=== PATIENT | female | born 1995 | race American Indian/Alaskan Native ===

== ENCOUNTER 2018-10-26 19:24 | Emergency (ER) | payer OTHER ==
--- NOTE | 2018-10-26 19:43 | ED PDOC ---
Arrival/HPI - General Chief Complaint: Abdominal Pain Time Seen by Provider: 10/26/18 19:37 - History of Present Illness Narrative History of Present Illness (Text): 23 yr old F p/w abdominal pain, headache, syncope. She notes abdominal pain all day, started this morning, throbbing, periumbilical, without radiation. She notes the pain is different from her normal period pain. She notes she is currently on her period, with mildly heavier flow. She denies any trauma. She notes headache started at 1600, after her abdominal pain. [place] was not worst of life and not sudden in onset. She notes feeling dizzy prior to syncopal episode. She denies any pain after falling and passing out other than her head and abdomen. No FND. She denies biting her tongue or loss of bowel control. Family deny any seizure like activity. No hx of alcohol use. No family hx of sudden or arrythmias. She also notes that she has not eaten very much over the past 2 days. She notes only eating czech fries yesterday. She denies any SI, Hi or depression. No trouble sleeping. No decrease in pleasure of previous activities. No drug use. No fever, chills or night sweats No chest pain or sob No leg swelling No urinary complaints No back pain No neck pain No other complaints Past Medical History - Reproductive Currently : Unknown Family/Social History Family/Social History: Unknown Family HX Allergies/Home Meds Allergies/Adverse Reactions: Allergies No Known Allergies Allergy (Verified 10/26/18 19:37) Home Medications: Home Meds Medication Instructions Recorded Confirmed RX: No Known Home Med 10/26/18 10/26/18 Review of Systems - Review of Systems Constitutional: absent: Fatigue, Weight Change, Fevers Eyes: absent: Vision Changes, Photophobia ENT: absent: Hearing Changes, Tinnitus Respiratory: absent: SOB, Cough, Sputum Cardiovascular: absent: Chest Pain, Palpitations Gastrointestinal: Abdominal Pain, Appetite Changes. absent: Stool Changes, Constipation, Vomiting, Hematochezia Genitourinary Female: absent: Dysuria, Frequency Musculoskeletal: absent: Arthralgias, Back Pain Skin: absent: Rash, Pruritis Neurological: Headache. absent: Dizziness, Focal Weakness, Gait Changes, Speech Changes, Facial Droop, Disequilibrium, Seizure Endocrine: absent: Diaphoresis, Polyuria Hemo/Lymphatic: absent: Adenopathy, Easy Bleeding Psychiatric: absent: Anxiety, Depression Physical Exam Temperature: Afebrile Blood Pressure: Hypertensive Pulse: Tachycardic Respiratory Rate: Normal Appearance: Positive for: Well-Appearing, Non-Toxic, Comfortable Pain Distress: Mild Mental Status: Positive for: Alert and Oriented X 3 - Systems Exam Head: Present: Atraumatic, Normocephalic Pupils: Present: PERRL Extroacular Muscles: Present: EOMI Conjunctiva: Present: Normal Ears: Present: Normal Mouth: Present: Moist Mucous Membranes Pharnyx: Present: Normal. No: ERYTHEMA, EXUDATE Nose (External): Present: Atraumatic. No: Abrasion, Contusion, Laceration Nose (Internal): Present: Normal Inspection, No Active Bleeding, Moist. No: Boggy, Purulent Mucous, Septal Hematoma Neck: Present: Normal Range of Motion. No: Meningeal Signs, MIDLINE TENDERNESS, Paraspinal Tenderness, JVD Respiratory/Chest: Present: Clear to Auscultation, Good Air Exchange. No: Respiratory Distress, Tender to Palpation Cardiovascular: Present: Normal S1, S2, Tachycardic. No: Murmurs Abdomen: Present: Tenderness (periumbilical), Normal Bowel Sounds. No: Distention Back: Present: Normal Inspection. No: CVA Tenderness, Midline Tenderness Upper Extremity: Present: Normal Inspection, Normal ROM, NORMAL PULSES, Neurovascularly Intact. No: Cyanosis, Edema, Deformity Lower Extremity: Present: Normal Inspection, NORMAL PULSES, Normal ROM, Neurovascularly Intact. No: Edema, CALF TENDERNESS, Deformity Neurological: Present: GCS=15, CN II-XII Intact, Speech Normal, Motor Func Grossly Intact, Normal Sensory Function, Normal Cerebellar Funct, Gait Normal, Memory Normal Skin: Present: Warm, Dry. No: Rashes Psychiatric: Present: Alert, Oriented x 3, Normal Insight Medical Decision Making ED Course and Treatment: 23 yr old female well appearing in NAD p/w abdominal pain, headache, syncope. [place] not worst of life, not sudden on onset, no hx of PolyCycsKidney disease or family hx of brain lesions / bleeds. No FND. Normal neuro exam. Abdominal pain is lucinda-umbilical, without radiation, pt is also on period but w/ out abnl vaginal d/c outside of menstrual cycle. Syncope w/ out FND. No family hx of arrythmia. Pt notes decreased PO intake w/ out psych symptoms x2d. Syncope likely related 2/2 decrease PO intake. Neck clear via nexus. Non-ttp to hips, shoulder, chest, midline back. N/V intact in all extremities with no joint pain. Pt notes taking tylenol before coming and does not seek any pain meds at this time Pending imaging and labs 10/26/18 20:19 10/26/18 21:47 multiple attempts at line insertion failed Pt notes she would not like any further sticks of lines at this time I Informed patient the need to rule out appendicitis with a CT requiring an IV line. She notes understanding that without contrast i wont be able to fully rule out an appendicitis. Given patient AOx3, and with capacity. Will seek scan w/ out contrast. She is agreeable to scan w/ out contrast 10/26/18 23:11 CT Head, reviewed by radiologist: IMPRESSION: No acute intracranial abnormality. Electronically signed on Oct 26, 2018 10:57:11 PM EST by: Satya Sadler M.D., MBA Certified By ABR & [employer] Fellowship Trained MRI and CT Specialist CT Abdomen/Pelvis, reviewed by radiologist: IMPRESSION: 1. The visualized heart is mildly enlarged. 2. Tiny hiatal hernia. 3. Bladder is quite distended, measuring 16 x 6 x 12 cm. Please correlate for the possibility of urinary outflow obstruction or urinary retention. 4. Constipation. Electronically signed on Oct 26, 2018 11:02:43 PM EST by: Satya Sadler M.D., SUE Certified By ABR & CBC[employer] Fellowship Trained MRI and CT Specialist 10/26/18 23:27 labs largely unremarkable No appendicits seen on CT: appendix visualized w/ out abnl. Pending US Pt denies any difficulty urinating, gave sample earlier. 10/27/18 01:20 Pt in NAD Pending US 10/27/18 02:07 US Transvaginal, reviewed by radioligist: IMPRESSION: 1. No acute pelvic pathology demonstrated. Electronically signed on Oct 27, 2018 1:40:00 AM EST by: Satya Sadler M.D., SUE Certified By ABR & CBC[employer] Fellowship Trained MRI and CT Specialist 10/27/18 02:[address] unremarkable labs unremarkable pt denies any current complaints likely constipation pain. clear for d/c home with return indications and followup 10/27/18 05:45 Disposition/Present on Arrival - Present on Arrival Any Indicators Present on Arrival: No - Disposition Have Diagnosis and Disposition been Completed?: Yes Diagnosis: Constipation, Abdominal pain, Syncope Disposition: HOME/ ROUTINE Disposition Time: 02:15 Condition: GOOD Discharge Instructions (ExitCare): Constipation, Adult (DC), Acute Abdomen (Belly Pain), Adult (DC), Syncope (Fainting) (DC) Additional Instructions: TAKE OVER THE COUNTER LAXITIVE FOR YOUR CONSTIPATION . RETURN IF WORSENING PAIN OR NOT IMPROVED. MAKE SURE YOU EAT AND DRINK ENOUGH SO YOU DO NOT FEEL IF YOU ARE TO FAINT. NUBIA HERRERA, thank you for letting us take care of you today. Your provider was Wayne Chavez and you were treated for ABD PAIN. The emergency medical care you received today was directed at your acute symptoms. If you were prescribed any medication, please fill it and take as directed. It may take several days for your symptoms to resolve. Return to the Emergency Department if your symptoms worsen, do not improve, or if you have any other problems. Please contact your doctor or call one of the physicians/clinics you have been referred to that are listed on the Patient Visit Information form that is included in your discharge packet. Bring any paperwork you were given at discharge with you along with any medications you are taking to your follow up visit. Our treatment cannot replace ongoing medical care by a primary care provider outside of the emergency department. Thank you for allowing the [facility] team to be part of your care today. If you had an X-Ray or CT scan: A Radiologist will review the ED reading if any change in treatment is needed we will contact you. If you had a blood, urine, or wound culture: It will take several days for the results, if any change in treatment is needed we will contact you. If you had an STI test: It will take 48 hours for the results. Please call after 1 week if you have not heard back. Referrals: Pelon Granger MD [Staff Provider] - Follow up with primary Rosa M Bermudez MD [Medical Doctor] - Follow up with primary [facility] [Outside] - Follow up with primary [facility] [Outside] - Follow up with primary [facility] [Outside] - Follow up with primary Forms: [employer] (German)
[2018-10-26 19:45] VITALS: O2SAT 100
[2018-10-26] MEDS ORDERED: Sodium Chloride 0.9% 1,000 ML IV STA (19:54)
[2018-10-26 21:05] LABS: URINE APPEARANCE SLIGHT-CLOUDY (CLEAR); URINE BILIRUBIN NEGATIVE (NEGATIVE); URINE BLOOD LARGE (NEGATIVE); URINE COLOR LIGHT YELLOW (YELLOW); URINE GLUCOSE (UA) NEGATIVE (NEGATIVE); URINE LEUKOCYTE ESTERASE SMALL Leu/uL (NEGATIVE); URINE PROTEIN TRACE mg/dL (<30 mg/dL); URINE UROBILINOGEN 0.2 E.U./dL (<1 E.U./dL)
[2018-10-26 21:52] LABS: BASO # 0.01 K/mm3 (0.0-2.0); BASO % 0.2 % (0.0-3.0); EOS % 0.5 % (1.5-5.0); HEMOGLOBIN 11.1 g/dL (12.0-16.0); LYMPH # 1.9 (1.2-3.4); LYMPH % 31.1 % (22.0-35.0); MEAN CORPUSCULAR HEMOGLOBIN 25.2 pg (25.0-35.0); MEAN CORPUSCULAR HGB CONC 31.1 g/dl (31.0-37.0); MEAN PLATELET VOLUME 10.1 fl (7.0-11.0); MONO # 0.3 (0.1-0.6); MONO % 5.6 % (1.0-6.0); RBC 4.41 10^6/uL (3.5-6.1); RED CELL DISTRIBUTION WIDTH 14.3 % (11.5-14.5); WHITE BLOOD COUNT 5.9 10^3/uL (4.5-11.0)
[2018-10-26 22:06] LABS: ALB/GLOB RATIO 1.1 (1.1-1.8); ALBUMIN 4.5 g/dL (3.0-4.8); ALT/SGPT 10 U/L (7-56); AST/SGOT 23 U/L (14-36); BLOOD UREA NITROGEN 8 mg/dL (7-21); CALCIUM 9.6 mg/dL (8.4-10.5); GFR NON-AFRICAN AMERICAN > 60; LIPASE 71 U/L (23-300)
[2018-10-27 02:23] VITALS: BP 129/81; PULSE 80; TEMP 98.1
[2018-10-27 02:28] VITALS: RESP 18
--- NOTE | 2018-10-27 10:30 | CT ---
Date of service: 10/26/2018 PROCEDURE: CT HEAD WITHOUT CONTRAST. HISTORY: headache COMPARISON: None available. TECHNIQUE: Axial computed tomography images were obtained through the head/brain without intravenous contrast. Radiation dose: Total exam DLP = 821.97 mGy-cm. This CT exam was performed using one or more of the following dose reduction techniques: Automated exposure control, adjustment of the mA and/or kV according to patient size, and/or use of iterative reconstruction technique. FINDINGS: HEMORRHAGE: No parenchymal, subarachnoid extra-axial hemorrhage. BRAIN: No mass effect or edema. No atrophy or chronic microvascular ischemic changes. VENTRICLES: No obstructive hydrocephalus however the ventricles are slightly prominent... CALVARIUM: Calvarium intact. PARANASAL SINUSES: Unremarkable as visualized. No significant inflammatory changes. Enlarged adenoids not unusual in this age group. MASTOID AIR CELLS: Unremarkable as visualized. No inflammatory changes. OTHER FINDINGS: None. IMPRESSION: No acute intracranial hemorrhage. Slightly prominent appearing ventricles however there is no evidence of obstructive hydrocephalus.
--- NOTE | 2018-10-27 12:05 | CT ---
Date of service: 10/26/2018 PROCEDURE: CT Abdomen and Pelvis . HISTORY: Periumbilical abdominal pain. COMPARISON: None. TECHNIQUE: Contiguous axial images of the abdomen and pelvis performed without oral or intravenous contrast material. Additional 2D sagittal and coronal reformats generated. Radiation dose: Total exam DLP = 1154.71 mGy-cm. This CT exam was performed using one or more of the following dose reduction techniques: Automated exposure control, adjustment of the mA and/or kV according to patient size, and/or use of iterative reconstruction technique. FINDINGS: Note that the examination is limited due to streak and beam hardening artifact arising from the upper extremities which have not been moved from the field of view. The LOWER THORAX: There is mild passive/dependent type atelectasis both posterior lower lung vázquez. No effusion or basilar pneumothorax. Heart size is borderline-mildly enlarged. No significant pericardial effusion.. There is a small hiatal hernia. The head LIVER: Unremarkable. No gross lesion or ductal dilatation. GALLBLADDER AND BILE DUCTS: Unremarkable. PANCREAS: Unremarkable. No mass. No ductal dilatation. SPLEEN: Unremarkable. No splenomegaly. ADRENALS: There are no adrenal lesions. KIDNEYS AND URETERS: The kidneys demonstrate relatively symmetric size. No evidence of nephrolithiasis or hydronephrosis. BLADDER: Urinary bladder is markedly distended; rule out urinary retention. No evidence of intraluminal urinary bladder calculi. REPRODUCTIVE: Uterus and adnexal structures appear grossly unremarkable so far as can be seen. APPENDIX: Normal-appearing appendix.. BOWEL: Evaluation of the bowel slightly limited due to the lack of oral contrast material. Stomach is incompletely distended. Visualized loops of small bowel exhibit normal contour and caliber however there does appear to be some fecalized content within several loops of small bowel in the right mid and lower abdomen suggesting stasis... Stool and air seen throughout the right colon and of most of the transverse as well as distal aspect of the descending and some of the sigmoid colon on. Most of the remaining colon is collapsed. No definitive mural wall thickening. There appears to be some mild rectal wall thickening nonspecific. PERITONEUM: Unremarkable. No fluid collection. No free air. Tiny fat containing umbilical hernia LYMPH NODES: Unremarkable. No enlarged lymph nodes. VASCULATURE: Unremarkable. No aortic aneurysm. No aortic atherosclerotic calcification or mural plaque present. BONES: No fracture or destructive lesion. OTHER FINDINGS: None. IMPRESSION: Mildly limited study due to streak and beam hardening artifact arising from the upper extremities which have not been moved from the field of view. Marked urinary bladder distention; rule out urinary retention. No evidence of acute appendicitis.
--- NOTE | 2018-10-27 18:24 | US ---
Date of service: 10/27/2018 HISTORY: on period, periumbilical pain COMPARISON: None available. TECHNIQUE: FINDINGS: UTERUS: Measures 9.3 x 4.8 x 5.9 cm. Retroverted. Normal in size and appearance. No fibroid or other mass lesion seen. ENDOMETRIUM: Measures 6.8 mm in diameter. Unremarkable. CERVIX: No cervical abnormality identified. RIGHT OVARY: Measures 2.8 x 2.0 x 2.3 cm. No solid mass. Normal flow. 8 mm follicular cyst present LEFT OVARY: Not visualized FREE FLUID: No significant free fluid noted. OTHER FINDINGS: None. IMPRESSION: Left ovary not visualized. Study is otherwise unremarkable.
== END 2018-10-27 02:26 | disposition home or self-care (01) ==
LOC: EDSEX → ED 19:24
DX: K59.00 Constipation, unspecified (principal); R10.9 Unspecified abdominal pain; R55 Syncope and collapse